=== PATIENT | female | born 1990 | race Caucasian/White ===

== ENCOUNTER 2019-05-26 20:54 | Emergency (ER) | payer BC, OTHER ==
[2019-05-26 21:01] VITALS: RESP 20; TEMP 97.6
[2019-05-26 21:02] VITALS: BP 148/94; PULSE 87
--- NOTE | 2019-05-26 21:25 | ED ---
Upper Extremity HPI - General Chief Complaint: Extremity Injury, Upper Stated Complaint: Hand/wrist injury Time Seen by Provider: 05/26/19 21:23 Source: patient Mode of arrival: ambulatory Limitations: no limitations - History of Present Illness Initial Comments: Radha is a previously healthy 28 yo female who works at [employer].. Patient presents the ER today for evaluation of a abrasion to the left hand and pain in the left wrist. Patient reports she was assisting in taking down a suspect when she tackled him to the ground and landed on her left wrist. She's not exactly sure of the position but believes she was holding onto the person landed with the back of her hand reports the ground. She noticed an abrasion on the back of her hand less than a centimeter in diameter. She has some mild tenderness to the medial surface of the wrist which is worse with inversion or firm palpation. - Related Data Home Medications Medication Instructions Recorded Confirmed No Known Home Medications 12/30/13 12/30/13 Allergies Allergy/AdvReac Type Severity Reaction Status Date / Time amoxicillin [Amoxicillin] Allergy Unknown Verified 05/26/19 21:00 Penicillins Allergy Unknown Verified 05/26/19 21:00 Review of Systems ROS Statement: Those systems with pertinent positive or pertinent negative responses have been documented in the HPI. ROS Other: All systems not noted in ROS Statement are negative. Past Medical History Past Medical History: No Reported History History of Any Multi-Drug Resistant Organisms: None Reported Additional Past Surgical History / Comment(s): JAW SURGERY Past Psychological History: No Psychological Hx Reported Smoking Status: Never smoker Past Alcohol Use History: None Reported Past Drug Use History: None Reported General Exam - General Exam Comments Initial Comments: Physical Exam GENERAL: Patient is well-developed and well-nourished. Patient is nontoxic and well-hydrated and is in no distress. HENT: Normocephalic, Atraumatic. EYES: PERRL, EOMI PULMONARY: Unlabored respirations. CARDIOVASCULAR: RRR Warm and well perfused extremities ABDOMEN: Non-distended SKIN: Small abrasion left hand with minimal surrounding bruising : Deferred NEUROLOGIC: Alert and oriented Normal speech Normal gait MUSCULOSKELETAL: Moving all extremities Full ROM of left wrist and hand Some tenderness to palpation on medial side of wrist approximately 1cm proximal to joint PSYCHIATRIC: No SI/HI Limitations: no limitations Course Vital Signs 05/26/19 20:58 Temperature 97.6 F Pulse Rate 87 Respiratory 20 Rate Blood Pressure 148/94 O2 Sat by Pulse 96 Oximetry Medical Decision Making - Medical Decision Making Physical exam unremarkable x-ray negative for any acute injuries. Patient comfortable with plan for discharge home, supportive care for contusion. Offered patient splinting should like to decline that she doesn't feel she warrants it. Disposition Clinical Impression: Wrist pain Disposition: HOME SELF-CARE Condition: Stable Instructions (If sedation given, give patient instructions): Hand Sprain (ED) Is patient prescribed a controlled substance at d/c from ED?: No Referrals: Espinoza Robbins DO [Primary Care Provider] - 1-2 days
--- NOTE | 2019-05-26 21:37 | XR ---
EXAMINATION TYPE: XR hand complete LT DATE OF EXAM: 05/26/2019 COMPARISON: NONE HISTORY: Pain TECHNIQUE: 3 views FINDINGS: Metacarpals appear intact. I see no fracture nor dislocation. Joint spaces are fairly kings l. IMPRESSION: Negative left hand exam. No fracture seen.
--- NOTE | 2019-05-26 21:38 | XR ---
EXAMINATION TYPE: XR wrist complete LT DATE OF EXAM: 05/26/2019 COMPARISON: NONE HISTORY: Pain TECHNIQUE: 4 views FINDINGS: Carpal bones appear intact. I see no fracture nor dislocation. Joint spaces are normal. The re are no pathologic calcifications. IMPRESSION: Negative left wrist exam.
== END 2019-05-26 21:57 | disposition home or self-care (01) ==
LOC: EC 20:54
DX: M25.532 Pain in left wrist (principal); S60.222A Contusion of left hand, initial encounter; Z88.0 Allergy status to penicillin; W50.0XXA Accidental hit or strike by another person, initial encounter; Y93.89 Activity, other specified; Y92.69 Other specified industrial and construction area as the place of occurrence of the external cause; Y99.0 Civilian activity done for income or pay; Z53.29 Procedure and treatment not carried out because of patient's decision for other reasons
CPT/HCPCS: 99283

== ENCOUNTER → 2019-06-02 | Outpatient (CLI) | payer OTHER ==
--- NOTE | 2019-06-02 15:05 | XR ---
EXAMINATION TYPE: XR wrist complete LT DATE OF EXAM: 06/02/2019 COMPARISON: None HISTORY: Pain TECHNIQUE: 4 view left wrist FINDINGS: No acute fractures or dislocations are evident. The soft tissues are normal. If there is pain at the anatomic snuff box, nuclear medicine bone scan could be performed. Follow-up exams of the wrist are recommended 7-10 days from acute trauma for continued pain. IMPRESSION: 1. Normal 4 view left wrist
== END ==
LOC: RADXRMAIN 14:45
PROVIDERS: ATTEND Emergency Medicine
DX: S63.502A Unspecified sprain of left wrist, initial encounter (principal); S60.212A Contusion of left wrist, initial encounter

== ENCOUNTER 2020-02-29 23:59 | Emergency (ER) | payer BC, OTHER ==
[2020-03-01 00:04] VITALS: PULSE 87; RESP 18; TEMP 97.8
[2020-03-01] MEDS ORDERED: DOXYCYCLINE 100 MG CAP PO STA (00:16)
--- NOTE | 2020-03-01 00:17 | ED ---
Animal Bite HPI - General Chief Complaint: Animal Bite Stated Complaint: [facility] dog bite Time Seen by Provider: 03/01/20 00:10 Source: patient, RN notes reviewed, old records reviewed Mode of arrival: ambulatory Limitations: no limitations - History of Present Illness Initial Comments: 29-year-old female who presents today with a dog bite to the left upper arm. Patient reportedly was responding to police call, as she works at [employer]. Patient reports that she was bit through her shirt. Patient reports that the dog was up-to-date on vaccines. Her tetanus shot is up-to-date. - Related Data Previous Rx's Medication Instructions Recorded Doxycycline [Vibramycin] 100 mg PO BID 7 Days #14 capsule 03/01/20 Allergies Allergy/AdvReac Type Severity Reaction Status Date / Time amoxicillin [Amoxicillin] Allergy Unknown Verified 03/01/20 00:04 Penicillins Allergy Unknown Verified 03/01/20 00:04 Review of Systems ROS Statement: Those systems with pertinent positive or pertinent negative responses have been documented in the HPI. ROS Other: All systems not noted in ROS Statement are negative. Past Medical History Past Medical History: No Reported History History of Any Multi-Drug Resistant Organisms: None Reported Additional Past Surgical History / Comment(s): JAW SURGERY, Past Psychological History: No Psychological Hx Reported Smoking Status: Never smoker Past Alcohol Use History: None Reported Past Drug Use History: None Reported General Exam - General Exam Comments Initial Comments: 29 year old female, no distress. Limitations: no limitations General appearance: alert, in no apparent distress Head exam: Present: atraumatic, normocephalic, normal inspection Eye exam: Present: normal appearance, PERRL, EOMI. Absent: scleral icterus, conjunctival injection, periorbital swelling ENT exam: Present: normal exam, mucous membranes moist Neck exam: Present: normal inspection. Absent: tenderness, meningismus, lymphadenopathy Respiratory exam: Present: normal lung sounds bilaterally. Absent: respiratory distress, wheezes, rales, rhonchi, stridor Cardiovascular Exam: Present: regular rate, normal rhythm, normal heart sounds. Absent: systolic murmur, diastolic murmur, rubs, gallop, clicks GI/Abdominal exam: Present: soft, normal bowel sounds. Absent: distended, tend erness, guarding, rebound, rigid Extremities exam: Present: normal inspection, full ROM, normal capillary refill, other (small abrasion puncture over left upper arm ). Absent: tenderness, pedal edema, joint swelling, calf tenderness Back exam: Present: normal inspection Neurological exam: Present: alert, oriented X3, CN II-XII intact Psychiatric exam: Present: normal affect, normal mood Skin exam: Present: warm, dry, intact, normal color. Absent: rash Course Vital Signs 03/01/20 03/01/20 00:00 00:29 Temperature 97.8 F Pulse Rate 87 Respiratory 18 Rate Blood Pressure 153/114 O2 Sat by Pulse 96 Oximetry Medical Decision Making - Medical Decision Making 29-year-old female presents emergency department today for evaluation for left upper arm wound from dog bite. Patient wound was cleaned. Dog is up-to-date on all vaccines. Patient has updated tetanus. She has an ALLERGY to penicillin the Patient be given doxycycline. Patient advised to monitor for signs of infection clean redness or drainage. The wound does not need closure is a superficial abrasion. Disposition Clinical Impression: Dog bite of left arm Disposition: HOME SELF-CARE Condition: Good Instructions (If sedation given, give patient instructions): Animal Bite (ED) Additional Instructions: Take antibiotic as prescribed. Take the antibiotic with crackers or small snack. Monitor for any signs of infection including redness swelling or drainage. Apply ice over the bite. Prescriptions: Doxycycline [Vibramycin] 100 mg PO BID 7 Days #14 capsule Is patient prescribed a controlled substance at d/c from ED?: No Referrals: None,Stated [Primary Care Provider] - 1-2 days Time of Disposition: 00:16
[2020-03-01 00:31] VITALS: BP 153/114
== END 2020-03-01 00:30 | disposition home or self-care (01) ==
LOC: EC 23:59
DX: S41.132A Puncture wound without foreign body of left upper arm, initial encounter (principal); Z88.0 Allergy status to penicillin; W54.0XXA Bitten by dog, initial encounter; Y92.69 Other specified industrial and construction area as the place of occurrence of the external cause; Y99.0 Civilian activity done for income or pay
CPT/HCPCS: 99283

== ENCOUNTER 2021-02-13 07:44 | Emergency (ER) | payer BC ==
[2021-02-13 07:49] VITALS: RESP 18; TEMP 97.8
--- NOTE | 2021-02-13 08:09 | ED ---
Abdominal Pain HPI - General Chief Complaint: Abdominal Pain Stated Complaint: Back/side pain Time Seen by Provider: 02/13/21 07:50 Source: patient, RN notes reviewed Mode of arrival: ambulatory Limitations: no limitations - History of Present Illness Initial Comments: Patient is a 30-year-old female with chief complaint of right sided flank pain starting at 5:00 this morning. Patient is complaining of episodic pain sharp 10/10 that waxes and wanes. Patient did admit that it was sudden onset of pain. Patient has point tenderness over right flank region. Patient admit to nausea vomiting this morning nausea resolved prior arrival, denies any diarrhea or difficulty with constipation. Patient reports fullness feeling of bladder with to urinate. Patient's past medical history is noncontributory and is otherwise healthy. - Related Data Home Medications Medication Instructions Recorded Confirmed [place] Fe 1 tab PO DAILY@1700 02/13/21 02/13/21 Allergies Allergy/AdvReac Type Severity Reaction Status Date / Time amoxicillin [Amoxicillin] Allergy Unknown Verified 02/13/21 08:26 Penicillins Allergy Unknown Verified 02/13/21 08:26 Review of Systems ROS Statement: Those systems with pertinent positive or pertinent negative responses have been documented in the HPI. ROS Other: All systems not noted in ROS Statement are negative. Past Medical History Past Medical History: No Reported History History of Any Multi-Drug Resistant Organisms: None Reported Additional Past Surgical History / Comment(s): JAW SURGERY, Past Psychological History: No Psychological Hx Reported Smoking Status: Never smoker Past Alcohol Use History: None Reported Past Drug Use History: None Reported General Exam Limitations: no limitations General appearance: alert, in no apparent distress Neck exam: Present: normal inspection, full ROM. Absent: tenderness, meningismus, lymphadenopathy Respiratory exam: Present: normal lung sounds bilaterally. Absent: respiratory distress, wheezes, rales, rhonchi, stridor Cardiovascular Exam: Present: regular rate, normal rhythm, normal heart sounds. Absent: systolic murmur, diastolic murmur, rubs, gallop, clicks GI/Abdominal exam: Present: soft, normal bowel sounds. Absent: distended, tenderness, guarding, rebound, rigid Back exam: Absent: CVA tenderness (R), CVA tenderness (L) Neurological exam: Present: alert, oriented X3 Skin exam: Present: warm, dry, intact, normal color. Absent: rash Course Vital Signs 02/13/21 02/13/21 07:47 09:35 Temperature 97.8 F Pulse Rate 77 103 H Respiratory 18 18 Rate Blood Pressure 127/78 124/87 O2 Sat by Pulse 98 97 Oximetry Medical Decision Making - Medical Decision Making 30-year-old female presented for right flank pain sudden onset of symptoms she is currently symptom-free urinalysis shows evidence of hematuria is mild bacteria she is asymptomatic. Patient did have hypokalemia though this is hemolyzed. Patient was hydrated, we discharged in stable condition. - Lab Data Result diagrams: 02/13/21 08:22 02/13/21 08:22 Lab Results 02/13/21 02/13/21 02/13/21 Range/Units 08:22 08:22 09:00 WBC 15.1 H (3.8-10.6) k/uL RBC 4.77 (3.80-5.40) m/uL Hgb 14.3 (11.4-16.0) gm/dL Hct 41.9 (34.0-46.0) % MCV 87.9 (80.0-100.0) fL MCH 30.1 (25.0-35.0) pg MCHC 34.2 (31.0-37.0) g/dL RDW 12.2 (11.5-15.5) % Plt Count 194 (150-450) k/uL MPV 9.4 Neutrophils % 83 % Lymphocytes % 10 % Monocytes % 5 % Eosinophils % 1 % Basophils % 0 % Neutrophils # 12.5 H (1.3-7.7) k/uL Lymphocytes # 1.5 (1.0-4.8) k/uL Monocytes # 0.7 (0-1.0) k/uL Eosinophils # 0.1 (0-0.7) k/uL Basophils # 0.1 (0-0.2) k/uL Sodium 136 L (137-145) mmol/L Potassium 5.8 H (3.5-5.1) mmol/L Chloride 106 (98-107) mmol/L Carbon Dioxide 19 L (22-30) mmol/L Anion Gap 11 mmol/L BUN 13 (7-17) mg/dL Creatinine 0.77 (0.52-1.04) mg/dL Est GFR (CKD-EPI)AfAm >90 (>60 ml/min/1.73 sqM) Est GFR (CKD-EPI)NonAf >90 (>60 ml/min/1.73 sqM) Glucose 137 H (74-99) mg/dL Calcium 9.1 (8.4-10.2) mg/dL Total Bilirubin 1.0 (0.2-1.3) mg/dL AST 30 (14-36) U/L ALT 16 (4-34) U/L Alkaline Phosphatase 58 (38-126) U/L Total Protein 7.6 (6.3-8.2) g/dL Albumin 4.2 (3.5-5.0) g/dL Urine Color Yellow Urine Appearance Cloudy H (Clear) Urine pH 8.0 (5.0-8.0) Ur Specific [place] 1.027 (1.001-1.035) Urine Protein 1+ H (Negative) Urine Glucose (UA) Negative (Negative) Urine Ketones 2+ H (Negative) Urine Blood Moderate H (Negative) Urine Nitrite Negative (Negative) Urine Bilirubin Negative (Negative) Urine Urobilinogen <2.0 (<2.0) mg/dL Ur Leukocyte Esterase Large H (Negative) Urine RBC 123 H (0-5) /hpf Urine WBC 37 H (0-5) /hpf Ur Squamous Epith Cells 9 H (0-4) /hpf Urine Bacteria Rare H (None) /hpf Urine Mucus Few H (None) /hpf Urine HCG, Qual (Not Detectd) 02/13/21 Range/Units 09:00 WBC (3.8-10.6) k/uL RBC (3.80-5.40) m/uL Hgb (11.4-16.0) gm/dL Hct (34.0-46.0) % MCV (80.0-100.0) fL MCH (25.0-35.0) pg MCHC (31.0-37.0) g/dL RDW (11.5-15.5) % Plt Count (150-450) k/uL MPV Neutrophils % % Lymphocytes % % Monocytes % % Eosinophils % % Basophils % % Neutrophils # (1.3-7.7) k/uL Lymphocytes # (1.0-4.8) k/uL Monocytes # (0-1.0) k/uL Eosinophils # (0-0.7) k/uL Basophils # (0-0.2) k/uL Sodium (137-145) mmol/L Potassium (3.5-5.1) mmol/L Chloride (98-107) mmol/L Carbon Dioxide (22-30) mmol/L Anion Gap mmol/L BUN (7-17) mg/dL Creatinine (0.52-1.04) mg/dL Est GFR (CKD-EPI)AfAm (>60 ml/min/1.73 sqM) Est GFR (CKD-EPI)NonAf (>60 ml/min/1.73 sqM) Glucose (74-99) mg/dL Calcium (8.4-10.2) mg/dL Total Bilirubin (0.2-1.3) mg/dL AST (14-36) U/L ALT (4-34) U/L Alkaline Phosphatase (38-126) U/L Total Protein (6.3-8.2) g/dL Albumin (3.5-5.0) g/dL Urine Color Urine Appearance (Clear) Urine pH (5.0-8.0) Ur Specific [place] (1.001-1.035) Urine Protein (Negative) Urine Glucose (UA) (Negative) Urine Ketones (Negative) Urine Blood (Negative) Urine Nitrite (Negative) Urine Bilirubin (Negative) Urine Urobilinogen (<2.0) mg/dL Ur Leukocyte Esterase (Negative) Urine RBC (0-5) /hpf Urine WBC (0-5) /hpf Ur Squamous Epith Cells (0-4) /hpf Urine Bacteria (None) /hpf Urine Mucus (None) /hpf Urine HCG, Qual Not Detected (Not Detectd) Disposition Clinical Impression: Kidney stone Disposition: HOME SELF-CARE Condition: Stable Instructions (If sedation given, give patient instructions): Kidney Stones (ED) Additional Instructions: Please return to the Emergency Department if symptoms worsen or any other concerns. Is patient prescribed a controlled substance at d/c from ED?: No Referrals: Espinoza Robbins DO [Primary Care Provider] - 1-2 days Time of Disposition: 10:00
[2021-02-13] MEDS ORDERED: SODIUM CHLORIDE 0.9% 500 ML 500 ML IV STA (08:11)
[2021-02-13] MEDS ORDERED: SODIUM CHLORIDE 0.9% 1,000 ML IV STA (08:11)
[2021-02-13] MEDS ORDERED: KETOROLAC 15 MG/ML 1 ML VIAL IVP STA (08:11)
[2021-02-13 08:43] LABS: ALT 16 U/L (4-34); African American GFR (CKD) >90 (>60 ml/min/1.73 sqM); Albumin 4.2 g/dL (3.5-5.0); Anion Gap 11 mmol/L; Blood Urea Nitrogen 13 mg/dL (7-17); Calcium 9.1 mg/dL (8.4-10.2); Carbon Dioxide 19 mmol/L (22-30); Chloride 106 mmol/L (98-107); Glucose 137 mg/dL (74-99); Non-African American GFR(CKD) >90 (>60 ml/min/1.73 sqM); Sodium 136 mmol/L (137-145); Total Protein 7.6 g/dL (6.3-8.2)
[2021-02-13 08:47] LABS: Basophils # (A) 0.1 k/uL (0-0.2); Basophils % (A) 0 %; Eosinophils # (A) 0.1 k/uL (0-0.7); Eosinophils % (A) 1 %; HCT 41.9 % (34.0-46.0); HGB 14.3 gm/dL (11.4-16.0); Lymphocytes # (A) 1.5 k/uL (1.0-4.8); Lymphocytes % (A) 10 %; MCH 30.1 pg (25.0-35.0); MCHC 34.2 g/dL (31.0-37.0); MCV 87.9 fL (80.0-100.0); Mean Platelet Volume 9.4; Monocytes # (A) 0.7 k/uL (0-1.0); Monocytes % (A) 5 %; Neutrophils # (A) 12.5 k/uL (1.3-7.7); Neutrophils % (A) 83 %; Platelet Count 194 k/uL (150-450); RBC 4.77 m/uL (3.80-5.40); RDW 12.2 % (11.5-15.5); WBC 15.1 k/uL (3.8-10.6)
[2021-02-13 09:02] LABS: AST 30 U/L (14-36); Alkaline Phosphatase 58 U/L (38-126); Potassium 5.8 mmol/L (3.5-5.1)
[2021-02-13 09:40] LABS: Appearance,Urine Cloudy (Clear); Bacteria,Urine Rare /hpf; Bilirubin,Urine Negative (Negative); Blood,Urine Moderate (Negative); Color,Urine Yellow; Glucose,Urine (UA) Negative (Negative); Ketones,Urine 2+ (Negative); Leukocyte Esterase,Urine Large (Negative); Mucus,Urine Few /hpf; Nitrite,Urine Negative (Negative); Protein,Urine 1+ (Negative); RBC,Urine 123 /hpf (0-5); Specific Gravity,Urine 1.027 (1.001-1.035); Squamous Epithelial Cell,Urine 9 /hpf (0-4); Urobilinogen,Urine <2.0 mg/dL (<2.0); WBC,Urine 37 /hpf (0-5)
[2021-02-13] MEDS ORDERED: ACET/COD 300 MG/30 MG STARTER PACK 6 TAB BTL PO STA (10:01)
[2021-02-13] MEDS ORDERED: ONDANSETRON 4 MG ODT STARTER PACK 2 TAB BTL PO STA (10:01)
[2021-02-13 10:15] VITALS: BP 117/89; PULSE 100
== END 2021-02-13 10:15 | disposition home or self-care (01) ==
LOC: EC 07:44
DX: N20.0 Calculus of kidney (principal); Z88.0 Allergy status to penicillin
CPT/HCPCS: 99284; 96374; 96361; 36415; 80053; 85025; 81001; 81025; 87086; J1885; S0119